=== PATIENT | male | born 1940 | race Caucasian/White ===

== ENCOUNTER 2019-11-12 18:33 | Emergency (ER) | payer MEDICARE, MEDICAID ==
[~2019-11-12] VITALS: Ht 177.8 cm; Wt 93.0 kg
[2019-11-12 21:02] LABS: EOSINOPHILS % 2.6 % (0.0-5.0); HEMATOCRIT. 39.9 % (42.0-52.0); HEMOGLOBIN. 13.5 g/dL (14.0-18.0); LYMPHOCYTES % 23.5 % (20.0-50.0); MEAN CORPUSCULAR VOLUME 88.6 fL (80.0-94.0); MEAN PLATELET VOLUME 8.7 fl (7.4-10.4); MONOCYTES % 12.3 % (2.0-8.0); NEUTROPHILS % 60.6 % (40.0-76.0); PLATELET 193 x1000/uL (130-400); RED CELL DISTRIBUTION WIDTH 13.9 % (11.6-14.6)
[2019-11-12 21:05] LABS: CHLORIDE 106 mEq/L (98-107)
[2019-11-12] MEDS ORDERED: FUROSEMIDE 40MG/4ML VIAL IVP ONE (22:15)
[2019-11-12 22:50] VITALS: BP 148/69
== END 2019-11-12 22:51 | disposition home or self-care (01) ==
LOC: ER 18:33
DX: R60.9 Edema, unspecified (principal); E11.9 Type 2 diabetes mellitus without complications; E78.00 Pure hypercholesterolemia, unspecified; I10 Essential (primary) hypertension
CPT/HCPCS: 36415; 71045; 80053; 82962; 83880; 84484; 85025; 93005; 96374; 99285; J1940

== ENCOUNTER 2021-08-30 12:29 | Inpatient (IN) | payer MEDICARE, MEDICAID ==
[~2021-08-30] VITALS: Ht 152.4 cm; Wt 98.9 kg
[2021-08-30] MEDS ORDERED: SODIUM CHLORIDE 0.9% 1,000 ML IV ONE (13:00)
[2021-08-30 13:19] LABS: BASOPHILS % 0.8 % (0.0-2.0); EOSINOPHILS % 3.5 % (0.0-5.0); HEMATOCRIT. 32.8 % (42.0-52.0); HEMOGLOBIN. 11.1 g/dL (14.0-18.0); LYMPHOCYTES % 24.2 % (20.0-50.0); MEAN CORPUSCULAR HEMOGLOBIN 30.7 pg (28.0-32.0); MEAN CORPUSCULAR VOLUME 90.4 fL (80.0-94.0); MEAN PLATELET VOLUME 8.6 fl (7.4-10.4); MONOCYTES % 10.6 % (2.0-8.0); NEUTROPHILS % 60.9 % (40.0-76.0); PLATELET 178 x1000/uL (130-400); RED BLOOD CELL COUNT 3.63 mill/uL (4.7-6.1); RED CELL DISTRIBUTION WIDTH 14.1 % (11.6-14.6)
[2021-08-30 13:28] LABS: CHLORIDE 118 mEq/L (98-107)
[2021-08-30] MEDS ORDERED: DEXTROSE 50% WATER 50ML SYRINGE IV ONE (14:15)
[2021-08-30] MEDS ORDERED: ALBUTEROL (0.083%) 2.5MG/3ML NEB HHN ONE (14:15)
[2021-08-30] MEDS ORDERED: SODIUM POLYSTYRENE SULFONATE 15 G/60 ML BOT PO ONE (14:15)
[2021-08-30] MEDS ORDERED: SODIUM BICARBONATE 8.4% 1 MEQ/ML 50ML SYR IV ONE (14:15)
[2021-08-30] MEDS ORDERED: CEFTRIAXONE 1 G PREMIX 50 ML IV ONE (14:30)
[2021-08-30 14:33] LABS: CLARITY URINE CLEAR (CLEAR); COLOR URINE YELLOW (YELLOW); KETONES URINE NEGATIVE (NEGATIVE); LEUKOCYTE ESTERASE URINE NEGATIVE (NEGATIVE); NITRITE URINE NEGATIVE (NEGATIVE); OCCULT BLOOD URINE 1+ (NEGATIVE); PROTEIN URINE 3+ (NEGATIVE); SPECIFIC GRAVITY URINE 1.017 (1.005-1.030); UROBILINOGEN URINE 0.2 E.U./dL (0.2-1.0)
[2021-08-30] MEDS ORDERED: BLOOD SUGAR DIAGNOSTIC STRIP TEST SCH (16:45)
[2021-08-30] MEDS ORDERED: DOCUSATE SODIUM 100MG CAPSULE PO PRN (16:45)
[2021-08-30] MEDS ORDERED: ACETAMINOPHEN 325MG TABLET PO PRN (16:45)
[2021-08-30] MEDS ORDERED: GUAIFENESIN 200MG/10ML SUGAR FREE UDC PO PRN (16:45)
[2021-08-30] MEDS ORDERED: DEXTROSE 50% WATER 50ML SYRINGE IV PRN (16:45)
[2021-08-30] MEDS ORDERED: IPRATROPIUM/ALBUTEROL 0.5-3(2.5)MG/3ML NEB HHN PRN (16:45)
[2021-08-30] MEDS ORDERED: ONDANSETRON HCL 4MG/2ML INJ IV PRN (16:45)
[2021-08-30] MEDS: BLOOD SUGAR DIAGNOSTIC STRIP TEST SCH ×2 (18:22→21:56)
[2021-08-30] MEDS: HEPARIN 5000 UNITS/ML VIAL SUBCUT SCH (21:47)
[2021-08-30] MEDS: INSULIN LISPRO 100 UNITS/ML SUBCUT SCH (22:03)
[2021-08-30 23:45] VITALS: BP 120/57
[2021-08-31] VITALS (7 sets, daily range): BP systolic 118–167; BP diastolic 61–81
[2021-08-31] MEDS: BLOOD SUGAR DIAGNOSTIC STRIP TEST SCH ×4 (05:11→21:01)
[2021-08-31] MEDS: HEPARIN 5000 UNITS/ML VIAL SUBCUT SCH ×3 (05:15→21:18)
[2021-08-31] MEDS ORDERED: SODIUM BICARBONATE 8.4% 1 MEQ/ML 50ML SYR IV SCH (08:00)
[2021-08-31 08:03] LABS: BASOPHILS % 0.7 % (0.0-2.0); EOSINOPHILS % 3.7 % (0.0-5.0); HEMATOCRIT. 30.5 % (42.0-52.0); HEMOGLOBIN. 10.2 g/dL (14.0-18.0); LYMPHOCYTES % 21.3 % (20.0-50.0); MEAN CORPUSCULAR HEMOGLOBIN 30.6 pg (28.0-32.0); MEAN CORPUSCULAR VOLUME 91.3 fL (80.0-94.0); MONOCYTES % 12.3 % (2.0-8.0); PLATELET 161 x1000/uL (130-400); RED BLOOD CELL COUNT 3.34 mill/uL (4.7-6.1); RED CELL DISTRIBUTION WIDTH 14.2 % (11.6-14.6)
[2021-08-31] MEDS: INSULIN LISPRO 100 UNITS/ML SUBCUT SCH ×4 (08:49→21:19)
[2021-08-31] MEDS ORDERED: SODIUM POLYSTYRENE SULFONATE 15 G/60 ML BOT PO NR (10:00)
[2021-08-31] MEDS ORDERED: INSULIN REGULAR (HUMULIN R) 300UNITS/3ML VIAL IV NR ×2 (10:15)
[2021-08-31] MEDS ORDERED: CALCIUM CHLORIDE 1,000 MG in DEXT 5% WATER 90 ML IV NR (12:00)
[2021-08-31] MEDS ORDERED: DEXTROSE 50% WATER 50ML SYRINGE IV NR (12:00)
[2021-08-31] MEDS: TAMSULOSIN HCL 0.4MG SR CAPSULE PO SCH (13:52)
[2021-08-31] MEDS: HYDRALAZINE HCL 25MG TABLET PO SCH ×2 (14:57→21:18)
[2021-08-31 16:55] LABS: PHOSPHORUS 2.6 mg/dL (2.5-4.9)
[2021-08-31 17:17] LABS: HEPATITIS B SURFACE ANTIGEN NEGATIVE
[2021-08-31] MEDS: ATORVASTATIN CALCIUM 40MG TABLET PO SCH (20:42)
[2021-08-31] MEDS ORDERED: INSULIN GLARGINE 100 UNITS/ML SUBCUT SCH (22:00)
[2021-09-01] VITALS: BP 171/77
[2021-09-01] MEDS: CLONIDINE 0.1MG TABLET PO PRN ×2 (01:03→12:08)
[2021-09-01 04:00] VITALS: BP 165/84
[2021-09-01] MEDS: HEPARIN 5000 UNITS/ML VIAL SUBCUT SCH ×3 (05:14→21:21)
[2021-09-01] MEDS: HYDRALAZINE HCL 25MG TABLET PO SCH ×2 (05:15→13:32)
[2021-09-01 08:00] VITALS: BP 165/68
[2021-09-01] MEDS: BLOOD SUGAR DIAGNOSTIC STRIP TEST SCH ×4 (08:09→21:22)
[2021-09-01] MEDS: TAMSULOSIN HCL 0.4MG SR CAPSULE PO SCH (08:11)
[2021-09-01] MEDS: INSULIN LISPRO 100 UNITS/ML SUBCUT SCH ×4 (08:13→21:19)
[2021-09-01 09:28] LABS: BASOPHILS % 1.1 % (0.0-2.0); EOSINOPHILS % 4.6 % (0.0-5.0); HEMATOCRIT. 33.8 % (42.0-52.0); HEMOGLOBIN. 11.4 g/dL (14.0-18.0); LYMPHOCYTES % 25.1 % (20.0-50.0); MEAN CORPUSCULAR HEMOGLOBIN 30.6 pg (28.0-32.0); MEAN CORPUSCULAR VOLUME 90.3 fL (80.0-94.0); MONOCYTES % 9.1 % (2.0-8.0); NEUTROPHILS % 60.1 % (40.0-76.0); PLATELET 176 x1000/uL (130-400); RED BLOOD CELL COUNT 3.74 mill/uL (4.7-6.1); RED CELL DISTRIBUTION WIDTH 14.3 % (11.6-14.6)
[2021-09-01] MEDS: AMLODIPINE 5MG TABLET PO SCH ×2 (09:39→21:17)
[2021-09-01 12:00] VITALS: BP 175/73
[2021-09-01] MEDS: HYDRALAZINE HCL 50MG TABLET PO SCH ×2 (14:00→21:17)
[2021-09-01 16:00] VITALS: BP 152/62
[2021-09-01 20:00] VITALS: BP 160/74
[2021-09-01] MEDS: ATORVASTATIN CALCIUM 40MG TABLET PO SCH (21:17)
[2021-09-01] MEDS ORDERED: INSULIN GLARGINE 100 UNITS/ML SUBCUT SCH (22:00)
[2021-09-02] VITALS: BP 159/77
[2021-09-02 04:00] VITALS: BP 152/69
[2021-09-02] MEDS: HEPARIN 5000 UNITS/ML VIAL SUBCUT SCH ×2 (06:13→14:42)
[2021-09-02] MEDS: INSULIN LISPRO 100 UNITS/ML SUBCUT SCH ×2 (06:13→14:40)
[2021-09-02] MEDS: BLOOD SUGAR DIAGNOSTIC STRIP TEST SCH ×2 (06:13→12:15)
[2021-09-02] MEDS: HYDRALAZINE HCL 50MG TABLET PO SCH ×2 (06:13→14:41)
[2021-09-02 08:00] VITALS: BP 106/51
[2021-09-02] MEDS: AMLODIPINE 5MG TABLET PO SCH (09:00)
[2021-09-02 09:10] LABS: ANTI-NUCLEAR ANTIBODIES DIRECT Negative (Negative)
[2021-09-02] MEDS: TAMSULOSIN HCL 0.4MG SR CAPSULE PO SCH (09:27)
[2021-09-02 11:08] LABS: BASOPHILS % 1.2 % (0.0-2.0); EOSINOPHILS % 3.7 % (0.0-5.0); HEMATOCRIT. 33.2 % (42.0-52.0); HEMOGLOBIN. 11.3 g/dL (14.0-18.0); LYMPHOCYTES % 20.6 % (20.0-50.0); MEAN CORPUSCULAR HEMOGLOBIN 30.4 pg (28.0-32.0); MEAN CORPUSCULAR VOLUME 89.7 fL (80.0-94.0); MEAN PLATELET VOLUME 8.5 fl (7.4-10.4); MONOCYTES % 11.1 % (2.0-8.0); NEUTROPHILS % 63.4 % (40.0-76.0); PLATELET 181 x1000/uL (130-400); RED BLOOD CELL COUNT 3.71 mill/uL (4.7-6.1); RED CELL DISTRIBUTION WIDTH 13.9 % (11.6-14.6)
[2021-09-02] MEDS ORDERED: HYDR-4135 PO (11:47)
[2021-09-02] MEDS ORDERED: TAMS-11 PO (11:47)
[2021-09-02] MEDS ORDERED: AMLO5TAB88 PO (11:47)
[2021-09-02 12:00] VITALS: BP 161/59
[2021-09-02] MEDS ORDERED: INSULIN LISPRO 100 UNITS/ML SUBCUT SCH (12:40)
[2021-09-02 16:00] VITALS: BP 140/53
[2021-09-02] MEDS ORDERED: TRAM50TA PO (16:02)
[2021-09-02] MEDS ORDERED: OXYB5TAB17 PO (16:02)
[2021-09-02] MEDS ORDERED: OMEP40CA20 PO (16:02)
[2021-09-02] MEDS ORDERED: LISI10TA26 PO (16:02)
[2021-09-02] MEDS ORDERED: AMLO10TA80 PO (16:02)
[2021-09-02] MEDS ORDERED: LINA5TAB PO (16:02)
[2021-09-02] MEDS ORDERED: LIP40 PO (16:02)
[2021-09-02] MEDS ORDERED: GABA-532 PO (16:02)
[2021-09-02] MEDS ORDERED: LANTUSUD SUBCUT (16:07)
[2021-09-02 16:09] VITALS: BP 140/53
== END 2021-09-02 18:00 | disposition home or self-care (01) | DRG 683 ==
LOC: ER 12:29 → 7WST 15:47 → EDBEDREQ 16:17 → EDBEDREQTM 16:17 → ENRESERV 19:05
PROVIDERS: ADMIT Internal Medicine; ATTEND Internal Medicine
DX: N17.9 Acute kidney failure, unspecified (principal); Z68.41 Body mass index [BMI] 40.0-44.9, adult; E44.0 Moderate protein-calorie malnutrition; E87.2 Acidosis; E87.5 Hyperkalemia; I12.9 Hypertensive chronic kidney disease with stage 1 through stage 4 chronic kidney disease, or unspecified chronic kidney disease; E78.5 Hyperlipidemia, unspecified; R33.9 Retention of urine, unspecified; E11.649 Type 2 diabetes mellitus with hypoglycemia without coma; N18.9 Chronic kidney disease, unspecified; D63.8 Anemia in other chronic diseases classified elsewhere; E11.22 Type 2 diabetes mellitus with diabetic chronic kidney disease; E11.42 Type 2 diabetes mellitus with diabetic polyneuropathy; E11.65 Type 2 diabetes mellitus with hyperglycemia; E78.00 Pure hypercholesterolemia, unspecified; K21.9 Gastro-esophageal reflux disease without esophagitis; E66.9 Obesity, unspecified; N28.1 Cyst of kidney, acquired; N32.89 Other specified disorders of bladder; R80.9 Proteinuria, unspecified
CPT/HCPCS: 36415; 71045; 76770; 80048; 80053; 80061; 81003; 82550; 82962; 83036; 83735; 84100; 84132; 85025; 86038; 86160; 86592; 86803; 87340; 93005; 94644; 99285; J0696; J1644; J1815; J3490; J7030; J7060

== ENCOUNTER 2021-09-17 13:54 | Inpatient (IN) | payer MEDICARE, MEDICAID ==
[~2021-09-17] VITALS: Ht 165.1 cm; Wt 101.6 kg
[~2021-09-17 13:54] MED LIST: AMLO10TA80 PO; AMLO5TAB88 PO; GABA-532 PO; HYDR-4135 PO; LANTUSUD SUBCUT; LINA5TAB PO; LIP40 PO; LISI10TA26 PO; OMEP40CA20 PO; OXYB5TAB17 PO; TAMS-11 PO; TRAM50TA PO
[2021-09-17 14:43] LABS: BASOPHILS % 0.9 % (0.0-2.0); EOSINOPHILS % 2.3 % (0.0-5.0); HEMATOCRIT. 32.4 % (42.0-52.0); HEMOGLOBIN. 10.5 g/dL (14.0-18.0); LYMPHOCYTES % 20.7 % (20.0-50.0); MEAN CORPUSCULAR VOLUME 92.3 fL (80.0-94.0); MEAN PLATELET VOLUME 8.4 fl (7.4-10.4); MONOCYTES % 11.8 % (2.0-8.0); NEUTROPHILS % 64.3 % (40.0-76.0); PLATELET 199 x1000/uL (130-400); RED BLOOD CELL COUNT 3.51 mill/uL (4.7-6.1); RED CELL DISTRIBUTION WIDTH 14.3 % (11.6-14.6)
[2021-09-17 14:55] LABS: CHLORIDE 113 mEq/L (98-107)
[2021-09-17] MEDS ORDERED: DEXTROSE 50% WATER 50ML SYRINGE IV ONE (15:45)
[2021-09-17] MEDS ORDERED: INSULIN REGULAR (HUMULIN R) 300UNITS/3ML VIAL IV ONE (15:45)
[2021-09-17] MEDS ORDERED: CALCIUM CHLORIDE 1GM/10ML SYR IV ONE (15:45)
[2021-09-17] MEDS ORDERED: SODIUM BICARBONATE 8.4% 1 MEQ/ML 50ML SYR IV ONE (15:45)
[2021-09-17] MEDS ORDERED: ALBUTEROL (0.083%) 2.5MG/3ML NEB HHN ONE (15:45)
[2021-09-17] MEDS ORDERED: FUROSEMIDE 40MG/4ML VIAL IVP ONE (15:45)
[2021-09-17] MEDS ORDERED: LIDOCAINE HCL/PF 1% 10 MG/ML 5ML VIAL ONE (16:18)
[2021-09-17] MEDS ORDERED: HEPARIN 1000 UNITS/ML 10ML ONE (16:18)
[2021-09-17] MEDS ORDERED: SODIUM POLYSTYRENE SULFONATE 15 G/60 ML BOT PO ONE (16:30)
[2021-09-17] MEDS ORDERED: CALCIUM GLUCONATE 100MG/ML 10ML VIAL IV ONE (16:30)
[2021-09-17 16:58] LABS: PARTIAL THROMBOPLASTIN TIME 27.6 sec (23.4-31.0); PROTHROMBIN TIME 10.5 sec (9.6-11.0)
[2021-09-17 17:07] LABS: HEPATITIS B SURFACE ANTIGEN NEGATIVE
[2021-09-17] MEDS ORDERED: ALBUTEROL (0.083%) 2.5MG/3ML NEB ONE (17:13)
[2021-09-17] MEDS ORDERED: INSULIN REGULAR (HUMULIN R) 300UNITS/3ML VIAL IV NR (17:15)
[2021-09-17] MEDS ORDERED: HYDROCODONE/ACETAMINOPHEN 5/325MG TABLET PO PRN (20:15)
[2021-09-17] MEDS ORDERED: ACETAMINOPHEN 325MG TABLET PO PRN (20:15)
[2021-09-17] MEDS ORDERED: MAGNESIUM/ALUMINUM HYDROXIDE/SIMETHICONE 30ML UDC PO PRN (20:15)
[2021-09-17] MEDS ORDERED: ONDANSETRON HCL 4MG/2ML INJ IV PRN (20:15)
[2021-09-17] MEDS: GABAPENTIN 300MG CAPSULE PO SCH (20:15)
[2021-09-17] MEDS ORDERED: DOCUSATE SODIUM 100MG CAPSULE PO PRN (20:15)
[2021-09-17] MEDS ORDERED: NA PHOS,M-B/NA PHOS,DI-BA ENEMA 118ML PR PRN (20:15)
[2021-09-17] MEDS ORDERED: GUAIFENESIN 200MG/10ML SUGAR FREE UDC PO PRN (20:15)
[2021-09-17] MEDS ORDERED: NALOXONE HCL 0.4MG/ML VIAL IV PRN (20:30)
[2021-09-17] MEDS ORDERED: ATORVASTATIN CALCIUM 40MG TABLET PO SCH (21:00)
[2021-09-17] MEDS ORDERED: INSULIN GLARGINE 100 UNITS/ML SUBCUT SCH (21:00)
[2021-09-17] MEDS: AMLODIPINE 5MG TABLET PO SCH (21:41)
[2021-09-17] MEDS: HYDRALAZINE HCL 50MG TABLET PO SCH (22:00)
[2021-09-18 01:12] LABS: CLARITY URINE CLEAR (CLEAR); COLOR URINE YELLOW (YELLOW); KETONES URINE NEGATIVE (NEGATIVE); LEUKOCYTE ESTERASE URINE NEGATIVE (NEGATIVE); NITRITE URINE NEGATIVE (NEGATIVE); OCCULT BLOOD URINE NEGATIVE (NEGATIVE); PROTEIN URINE 3+ (NEGATIVE); UROBILINOGEN URINE 0.2 E.U./dL (0.2-1.0)
[2021-09-18 01:21] VITALS: BP 154/69
[2021-09-18 04:00] VITALS: BP 139/59
[2021-09-18] MEDS: HYDRALAZINE HCL 50MG TABLET PO SCH ×2 (06:46→14:30)
[2021-09-18 08:00] VITALS: BP 130/65
[2021-09-18] MEDS ORDERED: TAMSULOSIN HCL 0.4MG SR CAPSULE PO SCH (09:00)
[2021-09-18] MEDS ORDERED: OXYBUTYNIN CHLORIDE 5MG TABLET PO SCH (09:00)
[2021-09-18] MEDS: AMLODIPINE 5MG TABLET PO SCH (09:48)
[2021-09-18] MEDS: GABAPENTIN 300MG CAPSULE PO SCH (09:49)
[2021-09-18] MEDS ORDERED: FUROSEMIDE 20MG TABLET PO SCH (10:00)
[2021-09-18 12:00] VITALS: BP 129/71
[2021-09-18] MEDS ORDERED: ALBUTEROL (0.083%) 2.5MG/3ML NEB HHN NR (13:15)
[2021-09-18] MEDS ORDERED: SODIUM POLYSTYRENE SULFONATE 15 G/60 ML BOT PO NR (13:15)
[2021-09-18 14:38] VITALS: BP 159/63
[2021-09-18 15:51] VITALS: BP 138/79
== END 2021-09-18 16:10 | disposition home or self-care (01) | DRG 640 ==
LOC: ER 13:54 → MICUSO 18:49 → ENRESERV 23:43 → 5EST 09-18 02:18
PROVIDERS: ADMIT Hospitalist; ATTEND Hospitalist
DX: E87.5 Hyperkalemia (principal); E43 Unspecified severe protein-calorie malnutrition; N17.9 Acute kidney failure, unspecified; T44.5X5A Adverse effect of predominantly beta-adrenoreceptor agonists, initial encounter; I12.9 Hypertensive chronic kidney disease with stage 1 through stage 4 chronic kidney disease, or unspecified chronic kidney disease; D63.8 Anemia in other chronic diseases classified elsewhere; E11.22 Type 2 diabetes mellitus with diabetic chronic kidney disease; E11.42 Type 2 diabetes mellitus with diabetic polyneuropathy; E78.00 Pure hypercholesterolemia, unspecified; I51.7 Cardiomegaly; K21.9 Gastro-esophageal reflux disease without esophagitis; E78.5 Hyperlipidemia, unspecified; N18.32 Chronic kidney disease, stage 3b; Z91.15 Patient's noncompliance with renal dialysis; Z79.899 Other long term (current) drug therapy; Z79.4 Long term (current) use of insulin; Z68.37 Body mass index [BMI] 37.0-37.9, adult
CPT/HCPCS: 36415; 71045; 80048; 80053; 80061; 81003; 82570; 82962; 84132; 84156; 85025; 86705; 86709; 86803; 86850; 86900; 87340; 94640; 94644; 99291; J0610; J1644; J1815; J1940; J3490

== ENCOUNTER 2022-01-27 12:42 | Inpatient (IN) | payer MEDICARE, MEDICAID ==
[~2022-01-27] VITALS: Ht 180.3 cm; Wt 109.4 kg
[2022-01-27] MEDS ORDERED: FUROSEMIDE 20MG TABLET PO ONE (13:45)
[2022-01-27 15:07] LABS: BASOPHILS % 1.1 % (0.0-2.0); HEMATOCRIT. 32.3 % (42.0-52.0); HEMOGLOBIN. 10.9 g/dL (14.0-18.0); MEAN CORPUSCULAR HEMOGLOBIN 30.2 pg (28.0-32.0); MEAN CORPUSCULAR VOLUME 89.7 fL (80.0-94.0); MEAN PLATELET VOLUME 7.8 fl (7.4-10.4); MONOCYTES % 13.3 % (2.0-8.0); NEUTROPHILS % 63.6 % (40.0-76.0); PLATELET 203 x1000/uL (130-400); RED CELL DISTRIBUTION WIDTH 15.2 % (11.6-14.6)
[2022-01-27 15:17] LABS: PROTHROMBIN TIME 11.2 sec (9.6-11.0)
[2022-01-27 15:18] LABS: CHLORIDE 109 mEq/L (98-107)
[2022-01-27 16:21] LABS: CLARITY URINE CLEAR (CLEAR); COLOR URINE YELLOW (YELLOW); KETONES URINE NEGATIVE (NEGATIVE); LEUKOCYTE ESTERASE URINE NEGATIVE (NEGATIVE); NITRITE URINE NEGATIVE (NEGATIVE); OCCULT BLOOD URINE NEGATIVE (NEGATIVE); PROTEIN URINE 4+ (NEGATIVE); SPECIFIC GRAVITY URINE 1.015 (1.005-1.030); UROBILINOGEN URINE 0.2 E.U./dL (0.2-1.0)
[2022-01-27] MEDS: FUROSEMIDE 40MG/4ML VIAL IVP SCH (17:18)
[2022-01-27] MEDS ORDERED: TRAMADOL 50MG TABLET PO PRN (17:45)
[2022-01-27] MEDS ORDERED: ACETAMINOPHEN 325MG TABLET PO PRN ×2 (17:45)
[2022-01-27] MEDS ORDERED: DOCUSATE SODIUM 100MG CAPSULE PO PRN (17:45)
[2022-01-27] MEDS ORDERED: MAGNESIUM/ALUMINUM HYDROXIDE/SIMETHICONE 30ML UDC PO PRN (17:45)
[2022-01-27] MEDS ORDERED: IPRATROPIUM/ALBUTEROL 0.5-3(2.5)MG/3ML NEB HHN PRN (17:45)
[2022-01-27] MEDS ORDERED: ONDANSETRON HCL 4MG/2ML INJ IV PRN (17:45)
[2022-01-27] MEDS: CLONIDINE 0.1MG TABLET PO PRN (19:59)
[2022-01-27] MEDS: FAMOTIDINE 20MG TABLET PO SCH (22:06)
[2022-01-28] VITALS: BP 182/75
[2022-01-28 04:00] VITALS: BP 147/66
[2022-01-28] MEDS: FUROSEMIDE 40MG/4ML VIAL IVP SCH ×2 (06:12→16:55)
[2022-01-28 06:38] LABS: HEMATOCRIT. 31.5 % (42.0-52.0); HEMOGLOBIN. 10.6 g/dL (14.0-18.0); MEAN CORPUSCULAR HEMOGLOBIN 30.6 pg (28.0-32.0); MEAN CORPUSCULAR VOLUME 90.5 fL (80.0-94.0); MEAN PLATELET VOLUME 8.4 fl (7.4-10.4); PLATELET 200 x1000/uL (130-400); RED BLOOD CELL COUNT 3.48 mill/uL (4.7-6.1); RED CELL DISTRIBUTION WIDTH 14.9 % (11.6-14.6)
[2022-01-28 06:55] LABS: CHLORIDE 112 mEq/L (98-107); T4 FREE 1.15 ng/dL (0.76-1.46)
[2022-01-28] MEDS ORDERED: SODIUM POLYSTYRENE SULFONATE 15 G/60 ML BOT PO NR (07:45)
[2022-01-28 08:00] VITALS: BP 180/68
[2022-01-28] MEDS: ENOXAPARIN 40MG/0.4ML SYR SUBCUT SCH (08:34)
[2022-01-28] MEDS: METOLAZONE 5MG TABLET PO SCH (09:40)
[2022-01-28] MEDS ORDERED: CEFTRIAXONE 1 G PREMIX 50 ML IV SCH (10:00)
[2022-01-28] MEDS: CEFTRIAXONE 1,000 MG in DEXTROSE 5% WATER 50 ML IV SCH (10:44)
[2022-01-28 12:00] VITALS: BP 168/66
[2022-01-28] MEDS ORDERED: VANCOMYCIN 2,000 MG in DEXT 5% WATER 500 ML IV SCH (12:00)
[2022-01-28 16:00] VITALS: BP 185/87
[2022-01-28 16:33] LABS: PLATELET ESTIMATE NORMAL
[2022-01-28] MEDS: CLONIDINE 0.1MG TABLET PO PRN (16:56)
[2022-01-28] MEDS: INSULIN LISPRO 100 UNITS/ML SUBCUT SCH ×2 (18:13→22:36)
[2022-01-28] MEDS ORDERED: DEXTROSE 50% WATER 50ML SYRINGE IV PRN (18:15)
[2022-01-28 20:00] VITALS: BP 171/78
[2022-01-28] MEDS: BLOOD SUGAR DIAGNOSTIC STRIP TEST SCH (21:00)
[2022-01-28] MEDS: FAMOTIDINE 20MG TABLET PO SCH (22:33)
[2022-01-29] VITALS (7 sets, daily range): BP systolic 143–197; BP diastolic 60–79
[2022-01-29] MEDS: METOLAZONE 5MG TABLET PO SCH (05:29)
[2022-01-29] MEDS: FUROSEMIDE 40MG/4ML VIAL IVP SCH ×2 (05:29→17:02)
[2022-01-29] MEDS: CLONIDINE 0.1MG TABLET PO PRN ×2 (05:29→17:01)
[2022-01-29] MEDS: BLOOD SUGAR DIAGNOSTIC STRIP TEST SCH ×3 (06:47→17:02)
[2022-01-29 07:43] LABS: BASOPHILS % 0.8 % (0.0-2.0); EOSINOPHILS % 5.5 % (0.0-5.0); HEMATOCRIT. 31.8 % (42.0-52.0); HEMOGLOBIN. 10.7 g/dL (14.0-18.0); LYMPHOCYTES % 20.8 % (20.0-50.0); MEAN CORPUSCULAR HEMOGLOBIN 29.9 pg (28.0-32.0); MEAN CORPUSCULAR VOLUME 88.7 fL (80.0-94.0); MEAN PLATELET VOLUME 8.1 fl (7.4-10.4); MONOCYTES % 13.7 % (2.0-8.0); NEUTROPHILS % 59.2 % (40.0-76.0); PLATELET 210 x1000/uL (130-400); RED BLOOD CELL COUNT 3.58 mill/uL (4.7-6.1); RED CELL DISTRIBUTION WIDTH 14.8 % (11.6-14.6)
[2022-01-29] MEDS: INSULIN LISPRO 100 UNITS/ML SUBCUT SCH ×3 (08:10→17:02)
[2022-01-29 08:53] LABS: CHLORIDE 108 mEq/L (98-107); PHOSPHORUS 3.8 mg/dL (2.5-4.9)
[2022-01-29] MEDS: ENOXAPARIN 40MG/0.4ML SYR SUBCUT SCH (09:20)
[2022-01-29] MEDS: CEFTRIAXONE 1,000 MG in DEXTROSE 5% WATER 50 ML IV SCH (11:02)
[2022-01-29] MEDS ORDERED: FURO-151 MT (12:13)
[2022-01-29] MEDS ORDERED: POTA-189 MT (12:15)
[2022-01-29] MEDS ORDERED: FURO40TA5 PO (17:06)
[2022-01-29] MEDS ORDERED: POTA-189 PO (17:07)
[2022-01-29] MEDS ORDERED: CEPH250C2 PO (17:08)
== END 2022-01-29 18:00 | disposition home or self-care (01) | DRG 602 ==
LOC: ER 12:42 → EDBEDREQ 16:26 → EDBEDREQSVC 18:00 → ENRESERV 22:25 → 7WST 23:00
PROVIDERS: ADMIT Hospitalist; ATTEND Hospitalist
DX: L03.115 Cellulitis of right lower limb (principal); E43 Unspecified severe protein-calorie malnutrition; I16.1 Hypertensive emergency; N17.9 Acute kidney failure, unspecified; N18.4 Chronic kidney disease, stage 4 (severe); L03.116 Cellulitis of left lower limb; E11.42 Type 2 diabetes mellitus with diabetic polyneuropathy; Z20.822 Contact with and (suspected) exposure to COVID-19; I12.9 Hypertensive chronic kidney disease with stage 1 through stage 4 chronic kidney disease, or unspecified chronic kidney disease; E78.00 Pure hypercholesterolemia, unspecified; E77.8 Other disorders of glycoprotein metabolism; E11.22 Type 2 diabetes mellitus with diabetic chronic kidney disease; E11.40 Type 2 diabetes mellitus with diabetic neuropathy, unspecified; D63.1 Anemia in chronic kidney disease; K21.9 Gastro-esophageal reflux disease without esophagitis; E87.5 Hyperkalemia; Z68.33 Body mass index [BMI] 33.0-33.9, adult; Z91.15 Patient's noncompliance with renal dialysis; Z79.84 Long term (current) use of oral hypoglycemic drugs
CPT/HCPCS: 36415; 71045; 80048; 80053; 81003; 82962; 83036; 83735; 83880; 84100; 84439; 84443; 85025; 87426; 93306; 93970; 97162; 97166; 99285; C9803; J0696; J1650; J1815; J1940; J3370; J7060

== ENCOUNTER → 2022-10-06 | Outpatient (CLI) | payer MEDICARE, MEDICAID ==
[~2022-10-06] MED LIST changes: +CEPH250C2 PO; +FURO40TA5 PO; +POTA-189 PO
== END | disposition home or self-care (01) ==
LOC: PF 13:08
PROVIDERS: ATTEND Internal Medicine Critical Care Medicine
DX: J44.9 Chronic obstructive pulmonary disease, unspecified (principal)
CPT/HCPCS: 87426; C9803

== ENCOUNTER 2024-06-03 21:30 | Inpatient (IN) | payer MEDICARE, MEDICAID ==
[~2024-06-03] VITALS: Ht 182.9 cm; Wt 97.5 kg
[2024-06-03 20:00] VITALS: BP 159/78; PULSE 68; RESP 20; TEMP 36.4; O2SAT 95
[2024-06-03 21:30] VITALS: BP 159/70; PULSE 68; RESP 20; TEMP 36.4
[~2024-06-03 21:30] MED LIST changes: +DOCU-422 MT; +EPOE40009 IJ; +ESCI-7 PO; +GABA-1180 PO; -GABA-532 PO; +HEPA100D37 IV; -HYDR-4135 PO; +HYDR50TA39 PO; +INSU100I28 SQ; +IPRA3AMP31 IH; +ONDA-239 PO; +OXYB-52 PO; -OXYB5TAB17 PO; +PANT40VI IV; +POLY250017 MT; +SENN-22 PO
[2024-06-03] MEDS ORDERED: SENNOSIDES 8.6MG TABLET PO PRN (22:30)
[2024-06-03] MEDS ORDERED: DEXTROSE 50% WATER 50ML SYRINGE IV PRN (23:00)
[2024-06-03] MEDS: HYDRALAZINE HCL 50MG TABLET PO SCH (23:46)
[2024-06-03] MEDS: HYDROCODONE/ACETAMINOPHEN 5/325MG TABLET PO PRN (23:46)
[2024-06-04] VITALS: BP 159/70; PULSE 72; RESP 20; TEMP 36.6; O2SAT 95
[2024-06-04] MEDS ORDERED: ACETAMINOPHEN 650MG SUPP PR SCH
[2024-06-04] MEDS ORDERED: ACETAMINOPHEN 650MG SUPP PR PRN (02:30)
[2024-06-04] MEDS: BLOOD SUGAR DIAGNOSTIC STRIP TEST SCH (06:13)
[2024-06-04] MEDS: PANTOPRAZOLE 40MG DR TABLET PO SCH (06:14)
[2024-06-04 06:38] LABS: CARBON DIOXIDE 27 mEq/L (21-32); CHLORIDE 96 mEq/L (98-107); POTASSIUM 4.5 mEq/L (3.5-5.1)
[2024-06-04 06:39] LABS: CALCIUM 8.9 mg/dL (8.7-10.4)
[2024-06-04 06:44] LABS: ALANINE AMINOTRANSFERASE 9 IU/L (10-49); GLUCOSE 184 mg/dL (70-105); UREA NITROGEN BLOOD 57 mg/dL (9-23)
[2024-06-04 06:45] LABS: ALBUMIN 3.3 g/dL (3.2-4.8)
[2024-06-04 06:46] LABS: ASPARTATE AMINOTRANSFERASE 18 IU/L (<34); BILIRUBIN TOTAL 0.2 mg/dL (0.1-1.0); PREALBUMIN 5.1 mg/dl (10.0-40.0); PROTEIN TOTAL 7.4 g/dL (6.0-8.3)
[2024-06-04 07:05] LABS: HEMOGLOBIN. 9.5 g/dL (14.0-18.0); MEAN CORPUSCULAR HEMOGLOBIN 31.6 pg (28.0-32.0); MEAN CORPUSCULAR HGB CONC 32.9 g/dL (31.0-37.0); MEAN CORPUSCULAR VOLUME 96.2 fL (80.0-94.0); MEAN PLATELET VOLUME 7.8 fl (7.4-10.4); PLATELET 383 x1000/uL (130-400); RED BLOOD CELL COUNT 3.01 mill/uL (4.7-6.1); RED CELL DISTRIBUTION WIDTH 16.8 % (11.6-14.6); WHITE BLOOD COUNT 15.6 x1000/uL (4.5-11.0)
[2024-06-04 07:37] LABS: CREATININE 7.8 mg/dL (0.6-1.3)
[2024-06-04 08:00] VITALS: BP 148/52; PULSE 72; RESP 20; TEMP 36.3; O2SAT 98
[2024-06-04 08:02] LABS: SODIUM 134 mEq/L (136-145)
[2024-06-04 08:15] LABS: DIFFERENTIAL COMMENT 1
[2024-06-04] MEDS: SEVELAMER CARBONATE 800 MG TABLET PO SCH (08:47)
[2024-06-04] MEDS: POLYETHYLENE GLYCOL 3350 (17GM) 1 DOSE PACK PO SCH (08:47)
[2024-06-04] MEDS: DOCUSATE SODIUM 100MG CAPSULE PO SCH (08:47)
[2024-06-04] MEDS: FOLIC ACID/VITAMIN B COMP W-C TABLET PO SCH (08:47)
[2024-06-04] MEDS: AMIODARONE 200MG TABLET PO SCH (08:47)
[2024-06-04] MEDS: LORAZEPAM 0.5MG TABLET PO PRN (08:47)
[2024-06-04] MEDS: INSULIN LISPRO 100 UNITS/ML SUBCUT SCH (08:55)
[2024-06-04 20:00] VITALS: BP 153/53; PULSE 72; RESP 16; TEMP 36.5; O2SAT 96
[2024-06-04 20:07] LABS: ANISOCYTOSIS 1+; PLATELET ESTIMATE NORMAL
[2024-06-04] MEDS: ATORVASTATIN CALCIUM 40MG TABLET PO SCH (20:52)
[2024-06-04] MEDS: INSULIN GLARGINE 100 UNITS/ML SUBCUT SCH (21:54)
[2024-06-05 07:31] LABS: HEMATOCRIT. 28.4 % (42.0-52.0); HEMOGLOBIN. 9.2 g/dL (14.0-18.0); MEAN CORPUSCULAR HEMOGLOBIN 31.2 pg (28.0-32.0); MEAN CORPUSCULAR HGB CONC 32.5 g/dL (31.0-37.0); MEAN CORPUSCULAR VOLUME 96.1 fL (80.0-94.0); MEAN PLATELET VOLUME 7.8 fl (7.4-10.4); PLATELET 369 x1000/uL (130-400); RED BLOOD CELL COUNT 2.95 mill/uL (4.7-6.1); RED CELL DISTRIBUTION WIDTH 16.9 % (11.6-14.6); WHITE BLOOD COUNT 15.3 x1000/uL (4.5-11.0)
[2024-06-05 07:43] LABS: DIFFERENTIAL COMMENT 1
[2024-06-05 08:00] VITALS: BP 149/49; PULSE 60; RESP 17; TEMP 36.4; O2SAT 95
[2024-06-05 12:50] LABS: HEPATITIS B SURFACE ANTIGEN NEGATIVE (Negative)
[2024-06-05 13:10] LABS: HEPATITIS A AB IGM NEGATIVE (Negative)
[2024-06-05 13:11] LABS: HEPATITIS B CORE AB IGM NEGATIVE (Negative)
[2024-06-05 13:12] LABS: HEPATITIS C AB NON REACTIVE (Neg) (Negative)
[2024-06-05 15:44] LABS: ANISOCYTOSIS 1+; PLATELET ESTIMATE NORMAL
[2024-06-05 20:00] VITALS: BP 157/53; PULSE 56; RESP 16; TEMP 36.4; O2SAT 95
[2024-06-06 06:13] LABS: HEMATOCRIT. 27.7 % (42.0-52.0); HEMOGLOBIN. 9.1 g/dL (14.0-18.0); MEAN CORPUSCULAR HEMOGLOBIN 31.8 pg (28.0-32.0); MEAN CORPUSCULAR HGB CONC 32.9 g/dL (31.0-37.0); MEAN CORPUSCULAR VOLUME 96.5 fL (80.0-94.0); MEAN PLATELET VOLUME 7.6 fl (7.4-10.4); PLATELET 337 x1000/uL (130-400); RED BLOOD CELL COUNT 2.87 mill/uL (4.7-6.1); RED CELL DISTRIBUTION WIDTH 17.2 % (11.6-14.6); WHITE BLOOD COUNT 12.5 x1000/uL (4.5-11.0)
[2024-06-06 06:24] LABS: CALCIUM 9.1 mg/dL (8.7-10.4); POTASSIUM 4.9 mEq/L (3.5-5.1)
[2024-06-06 06:40] LABS: CREATININE 9.1 mg/dL (0.6-1.3)
[2024-06-06 07:29] LABS: DIFFERENTIAL COMMENT 1
[2024-06-06 08:00] VITALS: BP 144/54; PULSE 55; RESP 18; TEMP 35.9; O2SAT 100
[2024-06-06] MEDS: ACETAMINOPHEN 325MG TABLET PO PRN (08:30)
[2024-06-06 20:00] VITALS: BP 128/49; PULSE 18; PULSE 56; RESP 18; TEMP 36.1; O2SAT 94
[2024-06-06 21:06] LABS: ANISOCYTOSIS 1+; PLATELET ESTIMATE NORMAL
[2024-06-06 21:28] LABS: CHLORIDE 93 mEq/L (98-107); POTASSIUM 4.9 mEq/L (3.5-5.1); SODIUM 131 mEq/L (136-145)
[2024-06-06 21:30] LABS: CARBON DIOXIDE 26 mEq/L (21-32)
[2024-06-06] MEDS: ONDANSETRON HCL 4MG TABLET PO PRN (22:20)
== END 2024-06-07 09:57 | DRG 70 ==
PROVIDERS: ADMIT Physical Medicine & Rehabilitation Spinal Cord Injury Medicine; ATTEND Family Medicine Adult Medicine
PROC: 5A1D70Z Performance of Urinary Filtration, Intermittent, Less than 6 Hours Per Day (ICD-10-PCS; 2024-06-06)
PROC: 5A12012 Performance of Cardiac Output, Single, Manual (ICD-10-PCS; principal; 2024-06-07)
PROC: 0BH17EZ Insertion of Endotracheal Airway into Trachea, Via Natural or Artificial Opening (ICD-10-PCS; 2024-06-07)
DX: G93.41 Metabolic encephalopathy (principal); A41.9 Sepsis, unspecified organism; S72.114A Nondisplaced fracture of greater trochanter of right femur, initial encounter for closed fracture; N18.6 End stage renal disease; U07.1 COVID-19; R65.21 Severe sepsis with septic shock; J96.01 Acute respiratory failure with hypoxia; E87.1 Hypo-osmolality and hyponatremia; I13.2 Hypertensive heart and chronic kidney disease with heart failure and with stage 5 chronic kidney disease, or end stage renal disease; I31.39 Other pericardial effusion (noninflammatory); K86.1 Other chronic pancreatitis; M62.82 Rhabdomyolysis; J98.11 Atelectasis; I50.22 Chronic systolic (congestive) heart failure; D50.9 Iron deficiency anemia, unspecified; D53.9 Nutritional anemia, unspecified; E11.22 Type 2 diabetes mellitus with diabetic chronic kidney disease; E55.9 Vitamin D deficiency, unspecified; E87.5 Hyperkalemia; I44.0 Atrioventricular block, first degree; I48.0 Paroxysmal atrial fibrillation; E11.40 Type 2 diabetes mellitus with diabetic neuropathy, unspecified; E11.65 Type 2 diabetes mellitus with hyperglycemia; E78.00 Pure hypercholesterolemia, unspecified; R53.81 Other malaise; R26.9 Unspecified abnormalities of gait and mobility; F41.1 Generalized anxiety disorder; I25.10 Atherosclerotic heart disease of native coronary artery without angina pectoris; J45.909 Unspecified asthma, uncomplicated; K21.9 Gastro-esophageal reflux disease without esophagitis; F32.A Depression, unspecified; W18.39XA Other fall on same level, initial encounter; K56.41 Fecal impaction; R13.10 Dysphagia, unspecified; Z78.9 Other specified health status; Z79.84 Long term (current) use of oral hypoglycemic drugs; Z99.2 Dependence on renal dialysis; Z82.49 Family history of ischemic heart disease and other diseases of the circulatory system; Z83.3 Family history of diabetes mellitus; Y93.89 Activity, other specified; Y92.89 Other specified places as the place of occurrence of the external cause; Y99.8 Other external cause status
CPT/HCPCS: 31500; 36415; 80048; 80051; 80053; 82962; 84132; 84134; 84145; 85025; 86705; 86709; 87340; 92523; 92610; 92950; 97110; 97112; 97162; 97166; 97530; 97535; A4606; A6261; J1815; Q0162